=== PATIENT | male | born 1980 | race Caucasian/White ===

== ENCOUNTER 2019-09-26 01:29 | Emergency (ER) | payer OTHER ==
[~2019-09-26] VITALS: Ht 180.3 cm; Wt 115.7 kg
[2019-09-26 02:52] LABS: ABSOLUTE BASOPHILS 0.1 thou/uL (0.0-0.2); ABSOLUTE EOSINOPHILS 0.2 thou/uL (0.0-0.7); ABSOLUTE LYMPHOCYTES 2.2 thou/uL (0.8-5.3); ABSOLUTE MONOCYTES 0.8 thou/uL (0.0-1.2); BASOPHILS 0.9 %; EOSINOPHILS 1.3 %; HEMATOCRIT 43.8 % (42.0-52.0); HEMOGLOBIN 15.1 gm/dL (14.0-18.0); LYMPHOCYTES 16.3 %; MCH 27.5 pg (26.0-34.0); MCHC 34.4 g/dL (28.0-37.0); MPV 7.5 fl. (7.2-11.1); NUCLEATED RBCS 0 /100WBC; PLATELET COUNT* 312 thou/uL (150-400); POLYS 75.5 %; RBC 5.47 mil/uL (4.50-6.00); RDW-CV 14.5 % (10.5-14.5); WBC 13.3 thou/uL (4.0-11.0)
[2019-09-26 03:04] LABS: CALCIUM 8.6 mg/dL (8.5-10.1); CREATININE 1.5 mg/dL (0.6-1.3); POTASSIUM 3.6 mmol/L (3.5-5.1)
[2019-09-26 03:08] LABS: ALBUMIN 3.6 g/dL (3.4-5.0); TOTAL BILIRUBIN 0.5 mg/dL (<0.1-1.0); TOTAL PROTEIN 7.3 g/dL (6.4-8.2)
[2019-09-26] MEDS ORDERED: HYDROCODON-ACE1 EAC8 PO (05:22)
[2019-09-26] MEDS ORDERED: ZOFRAN ODT4 MG PO (05:22)
[2019-09-26 06:03] VITALS: BP 127/70
--- NOTE | 2019-09-26 09:46 | EKG ---
[place] [address] ELECTROCARDIOGRAM REPORT Name: RACHEL MOORE Room: [facility]#: [id number] Admission: 09/26/19 Attend Phys: Discharge: 09/26/19 Date of : 84 Report #: [id number] THIS REPORT FOR: //name// [facility] ED Test Date: 2019-09-26 Test Time: 01:54:57 Pat Name: RACHEL MOORE Department: Room: Gender: M [employer]: MYLES : 1980 Requested By: Renee Oneal Order Number: [id number] Rocco MD: Jonathan Interiano Measurements Intervals [place] Rate: 106 P: 51 DE: 151 QRS: 131 QRSD: 107 T: 6 QT: 351 QTc: 467 Interpretive Statements Sinus tachycardia Left posterior fascicular block Abnormal R-wave progression, late transition Inferior infarct, old Borderline ST elevation, anterior leads Lateral leads are also involved No previous ECG available for comparison Electronically Signed On 09-26-2019 9:46:17 TACKER OFF by Jonathan Interiano [email or web address] <ELECTRONICALLY SIGNED> By: Jonathan Interiano MD, [facility] 09/26/19 0946 [id number] [id number] Jonathan Interiano MD, [facility] /EPI
== END 2019-09-26 06:07 | disposition home or self-care (01) ==
LOC: M.ERS 01:29
PROVIDERS: Emergency Medicine
DX: R18.8 Other ascites (principal); R11.2 Nausea with vomiting, unspecified; R19.7 Diarrhea, unspecified

== ENCOUNTER 2021-02-08 20:34 | Emergency (ER) | payer OTHER ==
[~2021-02-08] VITALS: Ht 180.3 cm; Wt 133.8 kg
[~2021-02-08 20:34] MED LIST: HYDROCODON-ACE1 EAC8 PO; ZOFRAN ODT4 MG PO
[2021-02-08 20:55] VITALS: BP 129/85
[2021-02-08] MEDS ORDERED: NORCO5 PO (22:36)
[2021-02-08] MEDS ORDERED: IBUPROFEN 800800 M1 PO (22:36)
[2021-02-08] MEDS ORDERED: OMEPRAZOLE 20 M20 M1 PO (22:43)
[2021-02-08] MEDS ORDERED: NORVASC5 M1 PO (22:43)
[2021-02-08] MEDS ORDERED: DICYCLOMINE HCL20 MG PO (22:43)
== END 2021-02-08 22:55 | disposition home or self-care (01) ==
LOC: M.ERS 20:34
DX: S60.221A Contusion of right hand, initial encounter (principal); W23.0XXA Caught, crushed, jammed, or pinched between moving objects, initial encounter; Y93.89 Activity, other specified; Y92.89 Other specified places as the place of occurrence of the external cause; Y99.8 Other external cause status